=== PATIENT | female | born 1990 ===

== ENCOUNTER 2017-09-14 15:03 | Emergency (ER) | payer OTHER ==
[2017-09-14 15:36] VITALS: BP 138/93; PULSE 91; RESP 16; TEMP 98.1; O2SAT 99; BMI 30.4
--- NOTE | 2017-09-14 16:06 | ED PDOC ---
Arrival/HPI - General Chief Complaint: Back Pain Time Seen by Provider: 09/14/17 15:16 Historian: Patient - History of Present Illness Narrative History of Present Illness (Text): 09/14/17 16:03 26yr old female presents today with neck/upper back pain just started after working a long busy shift 4 nights ago. Patient states she had similar symptoms about 2 weeks ago which resolved with Advil. Patient states she's been taking Advil for the past 4 days. Patient states after taking Advil the pain improves with Center returns. Patient states she's been trying warm compresses without improvement. She denies chest pain or shortness of breath. She denies dizziness or weakness. Denies headaches. Patient states the pain is worse with range of motion of the neck to the right and left. Patient denies numbness weakness or tingling in the extremities. No other complaints Time/Duration: Other (4 days) Past Medical History - Provider Review Nursing Documentation Reviewed: Yes - Travel History Have you recently traveled outside [place] w/in the past 3 mons?: No - Tetanus Immunization Tetanus Immunization: Unknown - Hematological/Oncological Hx Anemia: Yes - Musculoskeletal/Rheumatological Hx Rheumatoid Arthritis: Yes - Psychiatric Hx Substance Use: No - Surgical History Hx Cataract Extraction: Yes Hx Eye Surgery: Yes (eye buckle) - Anesthesia Hx Anesthesia: Yes Family/Social History - Physician Review Nursing Documentation Reviewed: Yes Family/Social History: Unknown Family HX Smoking Status: Never Smoked Hx Alcohol Use: No Hx Substance Use: No Allergies/Home Meds Allergies/Adverse Reactions: Allergies No Known Allergies Allergy (Verified 09/14/17 15:55) Review of Systems - Review of Systems Constitutional: absent: Fatigue, Fevers Respiratory: absent: SOB, Cough Cardiovascular: absent: Chest Pain, Palpitations Gastrointestinal: absent: Abdominal Pain, Nausea, Vomiting Genitourinary Female: absent: Dysuria Musculoskeletal: Back Pain, Neck Pain. absent: Arthralgias Skin: absent: Rash, Pruritis Neurological: absent: Headache, Dizziness Physical Exam Vital Signs Reviewed: Yes Vital Signs Temp Pulse Resp BP Pulse Ox 09/14/17 15:35 98.1 F 91 H 16 138/93 H 99 Temperature: Afebrile Blood Pressure: Hypertensive Pulse: Regular Respiratory Rate: Normal Appearance: Positive for: Well-Appearing, Non-Toxic, Comfortable Pain Distress: None Mental Status: Positive for: Alert and Oriented X 3 - Systems Exam Head: Present: Atraumatic Mouth: Present: Moist Mucous Membranes Neck: Present: Normal Range of Motion, Paraspinal Tenderness (+ bilateral paraspinal and trapezius tenderness. ), Trachea Midline. No: Meningeal Signs, MIDLINE TENDERNESS Respiratory/Chest: Present: Clear to Auscultation, Good Air Exchange. No: Respiratory Distress, Accessory Muscle Use Cardiovascular: Present: Regular Rate and Rhythm, Normal S1, S2. No: Murmurs Back: Present: Normal Inspection. No: CVA Tenderness, Midline Tenderness, Paraspinal Tenderness Upper Extremity: Present: Normal ROM Lower Extremity: Present: Normal ROM Neurological: Present: GCS=15 Skin: Present: Warm, Dry, Normal Color. No: Rashes Psychiatric: Present: Alert, Oriented x 3 Medical Decision Making ED Course and Treatment: 09/14/17 16:12 Patient nontoxic well-appearing in no distress with stable vital signs. Toradol, Flexeril given 09/14/17 16:54 Patient reassessment: Feeling better with medications ambulating with a steady gait. Muscle strength 5 out of 5 bilaterally. I advised to followup with the orthopedist within the next 2 days. Return if symptoms worsen persist or new symptoms develop Patient verbalizes understanding of discharge instructions and need for immediate followup. all aspects of this case were discussed the attending of record. Impression: Back pain, neck pain Motrin every 6 hours as needed for pain Flexeril one tablet every 8 hours as needed for muscle spasms: May cause drowsiness Followup with the orthopedist within the next 2 days Followup with primary care physician within the next 2 days Return if symptoms worsen persist or if new symptoms develop Reassessment Condition: Re-examined, Improved - Medication Orders Current Medication Orders: Discontinued Medications Cyclobenzaprine HCl (Flexeril) 10 mg PO STAT STA Stop: 09/14/17 16:00 Last Admin: 09/14/17 16:20 Dose: 10 mg Ketorolac Tromethamine (Toradol) 60 mg IM STAT STA Stop: 09/14/17 16:00 Last Admin: 09/14/17 16:21 Dose: 60 mg MAR Pain Assessment Document 09/14/17 16:21 HI (Rec: 09/14/17 16:21 [id number]) Pain Reassessment Is this a pain reassessment? No IM Administration Charges Document 09/14/17 16:21 SD (Rec: 09/14/17 16:21 [id number]) Injection Site MAR Injection Site Left Gluteus Rey Charges for Administration # of IM Administrations 1 Disposition/Present on Arrival - Present on Arrival Any Indicators Present on Arrival: No History of DVT/PE: No History of Uncontrolled Diabetes: No Urinary Catheter: No History of Decub. Ulcer: No History Surgical Site Infection Following: None - Disposition Have Diagnosis and Disposition been Completed?: Yes Diagnosis: Neck pain, Back pain Disposition: HOME/ ROUTINE Disposition Time: 16:15 Patient Plan: Discharge Patient Problems: Current Active Problems Problem Status Onset Back pain Acute Neck pain Acute Condition: GOOD Discharge Instructions (ExitCare): Back Pain (ED) Additional Instructions: Motrin every 6 hours as needed for pain Flexeril one tablet every 8 hours as needed for muscle spasms: May cause drowsiness Followup with the orthopedist within the next 2 days Followup with primary care physician within the next 2 days Return if symptoms worsen persist or if new symptoms develop Prescriptions: Cyclobenzaprine [Cyclobenzaprine HCl] 10 mg PO Q8 #10 tab Ibuprofen [Motrin] 600 mg PO Q6H PRN #20 tab PRN Reason: pain/fever reduction Referrals: Alexander Avendano MD [Primary Care Provider] - Follow up with primary Aureliano Veliz MD [Staff Provider] - Follow up with primary Shailesh Langley III, MD [Medical Doctor] - Follow up with primary Forms: [facility] ([place]), WORK NOTE
== END 2017-09-14 17:48 | disposition home or self-care (01) ==
LOC: ED 15:03
DX: M54.2 Cervicalgia (principal); M54.9 Dorsalgia, unspecified; M06.9 Rheumatoid arthritis, unspecified
CPT/HCPCS: 96372; 99283; J1885